=== PATIENT | male | born 1950 ===

== ENCOUNTER 2022-09-26 13:53 | Inpatient (IN) | payer OTHER, BC ==
[~2022-09-26] VITALS: Ht 182.9 cm; Wt 101.0 kg
[2022-09-26 16:58] LABS: International Normalized Ratio 1.13; Prothrombin Time Results 11.8 Sec (9.7-11.5)
[2022-09-26] MEDS ORDERED: AMLODIPINE BESYL5 MG PO (17:52)
[2022-09-26] MEDS ORDERED: Alph-E-Mixed400 UNIT PO (17:53)
[2022-09-26] MEDS ORDERED: AZULFIDINE500 MG PO (17:54)
[2022-09-26] MEDS ORDERED: ENBREL SUR50 MG/1 M1 SC (17:56)
[2022-09-26] MEDS ORDERED: Nitrofurantoin100 M1 PO (17:56)
[2022-09-26] MEDS ORDERED: MYRBETRIQ25 MG PO (17:57)
[2022-09-26] MEDS ORDERED: METO100ER PO (17:57)
[2022-09-26] MEDS ORDERED: MONT10T PO (17:58)
[2022-09-26] MEDS ORDERED: Baclofen20 MG PO (17:59)
--- NOTE | 2022-09-26 17:59 | NUR ---
SHIFT SUMMARY; DIRECT ADMIT FROM [place]. A/A/OX4, INDEPENDANT IN ROOM. DENIES CP, L/S CLEAR T/O. DR. TESFAYE TO ROOM TO EVALUATE. DR. RODRIGUEZ NOTIFIED OF ARRIVAL. WILL CONTINUE TO MONITOR AND TREAT UNTIL CHANGE OF SHIFT.
[2022-09-26] MEDS ORDERED: NEURONTIN300 MG PO (18:00)
[2022-09-26] MEDS ORDERED: LOSA50 PO (18:00)
[2022-09-26] MEDS ORDERED: DYAZIDE 37.5-21 EACH PO (18:01)
[2022-09-26] MEDS ORDERED: ETODOLAC PO (18:02)
[2022-09-26] MEDS ORDERED: SUCR1 PO (18:02)
[2022-09-26] MEDS ORDERED: C COMPLEX1000 M1 PO (18:03)
[2022-09-26] MEDS ORDERED: Biotin800 MCG PO (18:04)
[2022-09-26] MEDS ORDERED: Aspir 8181 MG PO (18:04)
[2022-09-26] MEDS ORDERED: TUMS500 MG PO (18:05)
[2022-09-26] MEDS ORDERED: [UNRECOGNIZED DRUG - OTHER] PO (18:06)
[2022-09-26] MEDS ORDERED: CALCIUM PO (18:06)
[2022-09-26] MEDS ORDERED: VITAMIN D5000 UNIT PO (18:07)
[2022-09-26] MEDS ORDERED: CIME400 PO (18:07)
[2022-09-26] MEDS ORDERED: ZYRTEC10 M2 PO (18:07)
[2022-09-26] MEDS ORDERED: BENADRYL25 MG PO (18:08)
[2022-09-26] MEDS ORDERED: DOCU100 PO (18:08)
[2022-09-26] MEDS ORDERED: ESOM20 PO (18:09)
[2022-09-26] MEDS ORDERED: FIBER GUMMIES PO (18:12)
[2022-09-26] MEDS ORDERED: FLUT.05NI (18:13)
[2022-09-26] MEDS ORDERED: Deltasone 10 mg10 MG PO (18:15)
[2022-09-26] MEDS ORDERED: ZINC15 PO (18:16)
[2022-09-26] MEDS ORDERED: Hair, Skin & N1 EACH PO (18:16)
[2022-09-26] MEDS ORDERED: POTASSIUM GLUC500 M1 PO (18:17)
[2022-09-26] MEDS ORDERED: MAGNESIUM OXID500 MG PO (18:18)
[2022-09-26] MEDS ORDERED: IRON18 MG PO (18:19)
[2022-09-26] MEDS ORDERED: Ginger250 MG PO (18:19)
[2022-09-26] MEDS ORDERED: Echinacea80 MG PO (18:20)
[2022-09-27 01:29] LABS: BASOPHILS ABSOLUTE AUTO 0.03 K/mm3 (0.00-0.23); BASOPHILS PERCENT AUTO 0 % (0-2); EOSINOPHILS ABSOLUTE AUTO 0.07 K/mm3 (0.00-0.68); EOSINOPHILS PERCENT AUTO 1 % (0-6); Hematocrit 37.8 % (37.0-53.0); Hemoglobin 12.9 g/dL (13.5-17.5); IMMATURE GRAN ABSOLUTE AUTO 0.03 K/mm3 (0.00-0.10); IMMATURE GRAN PERCENT AUTO 0 % (0-1); LYMPHOCYTES ABSOLUTE AUTO 2.97 K/mm3 (0.84-5.20); LYMPHOCYTES PERCENT AUTO 33 % (21-46); MONOCYTES ABSOLUTE AUTO 1.51 K/mm3 (0.16-1.47); MONOCYTES PERCENT AUTO 17 % (4-13); Mean Corpuscular HGB 32.3 pg (26.0-34.0); Mean Corpuscular HGB Conc 34.1 g/dL (31.5-36.5); Mean Corpuscular Volume 95 fL (80-100); Mean Platelet Volume 9.8 fL (9.1-12.4); NEUTROPHILS ABSOLUTE AUTO 4.31 K/mm3 (1.96-9.15); NEUTROPHILS PERCENT AUTO 48 % (41-73); Platelet Count 208 K/mm3 (150-400); RDW Coefficient Variation 12.8 % (11.7-14.2); RDW Standard Deviation 44.3 fL (35.1-46.3); White Blood Cell Count 8.92 K/mm3 (4.00-11.30)
[2022-09-27 01:57] LABS: Alanine Aminotransfer (ALT/SGP 23 U/L (12-78); Albumin/Globulin Ratio 0.8 (0.8-1.8); Alk Phos 59 U/L (50-136); Anion Gap 6 mmol/L (6-16); Aspartate Aminotrans (AST/SGOT 28 U/L (12-37); Bilirubin, Total 0.3 mg/dL (0.1-1.0); Blood Urea Nitrogen 15 mg/dL (8-24); Bun/Creatinine Ratio 12.1 (12.0-20.0); CHOL/HDL RATIO 2.2; CO2, Blood 30 mmol/L (21-32); Calcium, Blood 8.7 mg/dL (8.5-10.1); Chloride, Blood 106 mmol/L (98-108); Cholesterol 129 mg/dL (50-200); Creatinine, Blood 1.24 mg/dL (0.60-1.20); Globulin, Blood 3.6 g/dL (2.2-4.0); Glomerular Filtration Rate 62 (60-); Glucose, Blood 114 mg/dL (70-99); HDL Cholesterol 60 mg/dL (>39); LDL/HDL RATIO 0.9; Low Density Lipoprotein Chol 54 mg/dL (0-110); Potassium, Blood 3.5 mmol/L (3.5-5.5); Sodium, Blood 142 mmol/L (136-145); Total Protein, Blood 6.6 g/dL (6.4-8.2); Triglycerides 76 mg/dL (30-160); Very Low Density Lipoprot Chol 15 mg/dL (6-32)
--- NOTE | 2022-09-27 05:53 | NUR ---
Shift summary: Pt slept well throughout the night. A&Ox4 and called appropriately. Independent but still calls for assistance with cords and IV pole. Pt remained in A.fib, no c/o chest pain/pressure, BP stable. Heparin drip still infusing. Troponin critical at 1332, repeat lab every 4 hours until it has peaked. NPO since midnight. Cardiac consult called in. Pt used own CPAP while sleeping with O2 sats in low 90s. Plan for angiogram today.
--- NOTE | 2022-09-27 18:51 | NUR ---
SHIFT SUMMARY NO ACUTE EVENTS THIS SHIFT, VSS. PT REMAINED IN A FIB THIS SHIFT 90s-110s, WITH SOME SHORT ELEVATIONS TO THE 150s WITH ACTIVITY SUCH USING THE BATHROOM. PT INDEPENDENT IN ROOM, AMBULATES WITH STEADY GAIT. HEPARIN GTT RUNNING PER EMAR. NAD, WCTM UNTIL NOC SHIFT.
[2022-09-28 04:23] LABS: BASOPHILS ABSOLUTE AUTO 0.04 K/mm3 (0.00-0.23); BASOPHILS PERCENT AUTO 1 % (0-2); EOSINOPHILS ABSOLUTE AUTO 0.21 K/mm3 (0.00-0.68); EOSINOPHILS PERCENT AUTO 3 % (0-6); Hematocrit 37.6 % (37.0-53.0); Hemoglobin 12.9 g/dL (13.5-17.5); IMMATURE GRAN ABSOLUTE AUTO 0.02 K/mm3 (0.00-0.10); IMMATURE GRAN PERCENT AUTO 0 % (0-1); LYMPHOCYTES ABSOLUTE AUTO 2.31 K/mm3 (0.84-5.20); LYMPHOCYTES PERCENT AUTO 28 % (21-46); MONOCYTES PERCENT AUTO 19 % (4-13); Mean Corpuscular HGB 32.2 pg (26.0-34.0); Mean Corpuscular HGB Conc 34.3 g/dL (31.5-36.5); Mean Corpuscular Volume 94 fL (80-100); Mean Platelet Volume 9.8 fL (9.1-12.4); NEUTROPHILS ABSOLUTE AUTO 4.05 K/mm3 (1.96-9.15); NEUTROPHILS PERCENT AUTO 49 % (41-73); Platelet Count 211 K/mm3 (150-400); RDW Coefficient Variation 12.6 % (11.7-14.2); RDW Standard Deviation 43.4 fL (35.1-46.3); Red Blood Cell Count 4.01 M/mm3 (4.30-5.90); White Blood Cell Count 8.23 K/mm3 (4.00-11.30)
[2022-09-28 04:46] LABS: Bun/Creatinine Ratio 16.2 (12.0-20.0); Creatinine, Blood 0.99 mg/dL (0.60-1.20); Potassium, Blood 3.6 mmol/L (3.5-5.5)
--- NOTE | 2022-09-28 06:48 | NUR ---
SHIFT SUMMARY: NEURO: PATIENT ALERT AND ORIENTED. NEURO WNL CARDIAC: AFIB. INCREASES WITH ACTIVITY. AFEBRILE. BP WNL RESP: RA, CPAP OVERNGIHT. GI: USES TOILET INDEPENDENTLY : USES TOILET INDEPENDENTLY OTHER: PATIENT TO GO TO [employer] [facility] THIS AM
[2022-09-28 07:39] LABS: Influenza A, PCR NEGATIVE (NEGATIVE); Influenza B, PCR NEGATIVE (NEGATIVE); Resp Syncytial Virus, PCR NEGATIVE (NEGATIVE); SARS-Cov-2 (COVID-19) PCR, MMC NEGATIVE (NEGATIVE)
--- NOTE | 2022-09-28 18:27 | NUR ---
DAY SHIFT SUMMARY PT AFIB IN 150-160S WITH AMBULATION AT START OF SHIFT, SCHEDULED AM PO METOPROLOL GIVEN WITH DECREASED TO THE 120S-140S WITH AMBULATION AND 90S AT REST. PT ASYMPTOMATIC, VSS PER PT TREND. PT WENT TO [facility] @ 0900 AND RETURNED AT 1145 WITH R TR BAND IN PLACE. TR BAND DEINFLATED AFTER 3 HOURS WITH AIR GRADUALLY REMOVED 2-3ML AT A TIME. PT TOLERATED WELL. DENIES CP OR DISCOMFORT. ON RA. R RADIAL SITE CLEANED AND DRESSED WITH TEGADERM. AT BEDSIDE THROUGHOUT THE DAY. WILL PASS ONTO NOC RN
--- NOTE | 2022-09-29 04:28 | NUR ---
end of shift summary no acute events over night. pt has been vital stable no complaints of chest pain. cath assess in rt wrist is free of hematoma or drainage. pt is suposed to discharge home. will continue to monitor and report to oncoming rn
[2022-09-29] MEDS ORDERED: ATOR80 PO (10:44)
[2022-09-29] MEDS ORDERED: CLOP75 PO (10:45)
[2022-09-29] MEDS ORDERED: ELIQUIS5 M2 PO (10:45)
[2022-09-29] MEDS ORDERED: METO100ER PO (10:49)
--- NOTE | 2022-09-29 12:38 | NUR ---
1200 - PT DISCHARGED VIA WHEELCHAIR TO PERSONAL CAR WITH . ALL DISCHARGE INSTRUCTIONS REVIEWED AND QUESTIONS ANSWERED. TELEMETRY AND IV REMOVED.
== END 2022-09-29 12:30 | disposition home or self-care (01) | DRG 246 ==
LOC: PCU 13:53
PROVIDERS: Internal Medicine Interventional Cardiology; ADMIT Internal Medicine
PROC: 3E0234Z Introduction of Serum, Toxoid and Vaccine into Muscle, Percutaneous Approach (ICD-10-PCS; 2022-09-26)
PROC: 027036Z Dilation of Coronary Artery, One Artery with Three Drug-eluting Intraluminal Devices, Percutaneous Approach (ICD-10-PCS; principal; 2022-09-28)
PROC: 02C03ZZ Extirpation of Matter from Coronary Artery, One Artery, Percutaneous Approach (ICD-10-PCS; 2022-09-28)
PROC: 4A033BC Measurement of Arterial Pressure, Coronary, Percutaneous Approach (ICD-10-PCS; 2022-09-28)
PROC: B240ZZ3 Ultrasonography of Single Coronary Artery, Intravascular (ICD-10-PCS; 2022-09-28)
PROC: B211YZZ Fluoroscopy of Multiple Coronary Arteries using Other Contrast (ICD-10-PCS; 2022-09-28)
PROC: 02F03ZZ Fragmentation in Coronary Artery, One Artery, Percutaneous Approach (ICD-10-PCS; 2022-09-28)
DX: I25.10 Atherosclerotic heart disease of native coronary artery without angina pectoris (principal); I21.A1 Myocardial infarction type 2; I48.91 Unspecified atrial fibrillation; I27.20 Pulmonary hypertension, unspecified; I12.9 Hypertensive chronic kidney disease with stage 1 through stage 4 chronic kidney disease, or unspecified chronic kidney disease; G47.33 Obstructive sleep apnea (adult) (pediatric); M45.9 Ankylosing spondylitis of unspecified sites in spine; M54.9 Dorsalgia, unspecified; G89.29 Other chronic pain; R94.6 Abnormal results of thyroid function studies; M19.90 Unspecified osteoarthritis, unspecified site; R94.31 Abnormal electrocardiogram [ECG] [EKG]; I51.7 Cardiomegaly; N18.2 Chronic kidney disease, stage 2 (mild); I34.0 Nonrheumatic mitral (valve) insufficiency; Z20.822 Contact with and (suspected) exposure to COVID-19; Z88.5 Allergy status to narcotic agent; Z99.81 Dependence on supplemental oxygen; Z98.890 Other specified postprocedural states; Z85.46 Personal history of malignant neoplasm of prostate; Z88.8 Allergy status to other drugs, medicaments and biological substances; Z91.018 Allergy to other foods; Z79.82 Long term (current) use of aspirin; Z79.01 Long term (current) use of anticoagulants; Z79.02 Long term (current) use of antithrombotics/antiplatelets; Z79.899 Other long term (current) drug therapy; Z23 Encounter for immunization; Z79.52 Long term (current) use of systemic steroids
CPT/HCPCS: 0241U; 36415; 76937; 80048; 80053; 80061; 83735; 84484; 85025; 85347; 85610; 85730; 90686; 93005; 93010; 93306; 93454; 93571; 93572; 94660; 94762; 99152; 99153; A9270; C1725; C1761; C1769; C1874; C1887; C1894; C9113; C9600; J0461; J1644; J1650; J2250; J3010; J3480; J7030; J7050; Q9967